=== PATIENT | female | born 1970 | race Caucasian/White ===

== ENCOUNTER 2020-08-11 08:41 | Emergency (ER) | payer OTHER ==
[~2020-08-11] VITALS: Ht 170.2 cm; Wt 63.6 kg
--- NOTE | 2020-08-11 08:46 | NUR ---
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
--- NOTE | 2020-08-11 08:48 | NUR ---
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
--- NOTE | 2020-08-11 08:52 | NUR ---
PT AMBULATED TO THE ROOM W/ A STEADY GAIT AT THIS TIME.
--- NOTE | 2020-08-11 09:14 | NUR ---
TRIAGE BP DONE ON LT ARM. EQUAL TO RT ARM BP IN ROOM.
--- NOTE | 2020-08-11 09:15 | NUR ---
THIS IS A 50 YO F W/ STERNAL PAIN THAT RADIATES INTO MID BACK SINCE YESTERDAY. PT DENIES INJ, DENIES MEDICAL HX. PT REPORTS PAIN NOW 3/10 WAS 6/10 AT WORST. PT REPORTS WAS SEEN BY TELEHEALTH AND TOLD TO TRY PPI. PT REPORTS NO RELIEF. RESTING ON GURNEY W/ CALL LIGHT IN REACH AND SIDE RAILS UPX2. BP EQUAL BILAT. VSS, NADN.
[2020-08-11] MEDS ORDERED: MAALOX/HYOSCYAMINE/LIDOCAINE 45 ML BTL ONE (09:23)
[2020-08-11] MEDS ORDERED: ASPIRIN 81 MG TABLET CHEW ONE (09:23)
[2020-08-11] MEDS ORDERED: MAALOX/HYOSCYAMINE/LIDOCAINE 45 ML BTL PO ONE (09:30)
[2020-08-11] MEDS ORDERED: ASPIRIN 81 MG TABLET CHEW PO ONE (09:30)
--- NOTE | 2020-08-11 09:30 | NUR ---
PIV STARTED, LAB DRAWN, PT MEDICATED PER EMAR. RAD IN ROOM FOR CXR.
[2020-08-11 09:36] LABS: BASOPHILS % (AUTO) 1 % (0-1); EOSINOPHILS % (AUTO) 8 % (1-7); LYMPHOCYTES % (AUTO) 30 % (22-44); MEAN CORPUSCULAR HEMOGLOBIN 31.3 pg (27.0-34.8); MEAN CORPUSCULAR HGB CONC 33.8 g/dL (32.4-35.8); MONOCYTES % (AUTO) 8 % (2-9); NEUTROPHILS % (AUTO) 52 % (42-75); PLATELET COUNT 276 x10^3/uL (130-400); RED BLOOD COUNT 4.62 x10^6/uL (3.82-5.3); RED CELL DISTRIBUTION WIDTH 12.9 % (9.6-15.2)
[2020-08-11 09:46] LABS: ALBUMIN 3.9 g/dL (3.4-5.0); ANION GAP 4 mmol/L (5-15); CALCIUM 8.9 mg/dL (8.5-10.1); CHLORIDE 108 mmol/L (98-107); CREATININE 0.82 mg/dL (0.55-1.02)
[2020-08-11 09:51] LABS: TROPONIN I < 0.015 ng/mL (0.000-0.045)
[2020-08-11 09:55] LABS: MD SCAN
--- NOTE | 2020-08-11 09:57 | NUR ---
ALL TESTS RESULTED. PT IS UP FOR RECHECK AT THIS TIME.
[2020-08-11 10:26] VITALS: BP 113/67
--- NOTE | 2020-08-11 10:43 | NUR ---
Patient given discharge instructions and they have confirmed that they understand the instructions. Patient ambulatory with steady gait.
== END 2020-08-11 10:44 | disposition home or self-care (01) ==
LOC: ED 10:31
DX: R07.89 Other chest pain (principal); R94.31 Abnormal electrocardiogram [ECG] [EKG]
CPT/HCPCS: 36415; 71045; 80048; 82040; 83880; 84484; 85025; 85379; 93005; 99285